=== PATIENT | male | born 1970 | race African-American/Black ===

== ENCOUNTER 2017-04-25 10:28 | Inpatient (IN) | payer BC ==
[2017-04-25 10:54] VITALS: BMI 22.8
--- NOTE | 2017-04-25 11:08 | HP ---
CIWA Score - CIWA Score Nausea/Vomitin-Mild Nausea/No Vomiting Muscle Tremors: 1-None Visible, but [place] Anxiety: 4-Mod. Anxious/Guarded Agitation: 1-Slight > Activity Paroxysmal Sweats: No Perspiration Orientation: 0-Oriented Tacttile Disturbances: 1-Very Mild Itch/Numbness Auditory Disturbances: 1-Very Mild Visual Disturbances: 1-Very Mild Sensitivity Headache: 3-Moderate CIWA-Ar Total Score: 13 Admission ROS BHS - HPI Chief Complaint: My job says I have to stop drinking Allergies/Adverse Reactions: Allergies Allergy/AdvReac Type Severity Reaction Status Date / Time No Known Allergies Allergy Verified 04/25/17 11:02 History of Present Illness: 46 yo gentleman here for first time detox for alcohol. Denies seizures but does have black outs. Never saw psychiatrist but does hear voices sometimes. Longest times sober 'about 3 weeks'. States was told by his work to get help. States he is diabetic but just watches his diet, states on no meds - strong family history of diabetes - BGM = 242. Exam Limitations: Clinical Condition - Ebola screening Have you traveled outside of the country in the last 21 days: No Have you had contact with anyone from an Ebola affected area: No Have you been sick,other than usual withdrawal symptoms: No Do you have a fever: No - Review of Systems Constitutional: Loss of Appetite, Malaise, Changes in sleep, Weakness EENT: reports: Blurred Vision Respiratory: reports: No Symptoms reported Cardiac: reports: No Symptoms Reported GI: reports: Nausea : reports: No Symptoms Reported Musculoskeletal: reports: Back Pain, Joint Pain, Muscle Pain Integumentary: reports: Dryness Endocrine: reports: No Symptoms Reported Hematology: reports: No Symptoms Reported Psychiatric: reports: Judgement Intact, Mood/Affect Appropiate, Orientated x3, Anxious Other Systems: Reviewed and Negative Patient History - Patient Medical History Hx Anemia: No Hx Asthma: No Hx Chronic Obstructive Pulmonary Disease (COPD): No Hx Cancer: No Hx Cardiac Disorders: No Hx Congestive Heart Failure: No Hx Hypertension: No Hx Hypercholesterolemia: No Hx Pacemaker: No HX Cerebrovascular Accident: No Hx Seizures: No Hx Dementia: No Hx Gastrointestinal Disorders: No Hx Liver Disease: No Hx Genitourinary Disorders: No Hx Sexually Transmitted Disorders: No Hx Renal Disease (ESRD): No Hx Thyroid Disease: No Hx Human Immunodeficiency Virus (HIV): No Hx Hepatitis C: No Hx Depression: No Hx Suicide Attempt: No Hx Bipolar Disorder: No Hx Schizophrenia: No (never diagnosed but 'sometimes I hear voices and like I"m in a dream') - Patient Surgical History Past Surgical History: No - PPD History Previous Implant?: No Implanted On Prior R Admission?: No PPD to be Administered?: Yes - Reproductive History Patient is a Female of Child Bearing Age (11 -55 yrs old): No (male) - Smoking Cessation Smoking history: Never smoked Have you smoked in the past 12 months: No - Substance & Tx. History Hx Alcohol Use: Yes Hx Substance Use: No Substance Use Type: Alcohol Hx Substance Use Treatment: No - Substances Abused Alcohol Route: Oral Frequency: Daily Amount used: two 24 oz beers, 1/2 pint liquor Age of first use: 17 Date of Last Use: 04/24/17 Family Disease History - Family Disease History Family Disease History: Diabetes: Father (living, etoh when younger), Brother ( two - one has dm), Sister (seven - living - some with dm), Other: Father, Mother (, 'old age'), Brother, Sister, Son (2 -healthy), Daughter (1 - healthy) Admission Physical Exam [facility] - Vital Signs Vital Signs: Vital Signs - 24 hr 04/25/17 10:44 Temperature 97.5 F L Pulse Rate 83 Respiratory 18 Rate Blood Pressure 158/96 - Physical General Appearance: Yes: Nourished, Appropriately Dressed, Mild Distress HEENTM: Yes: Hearing grossly Normal, Normal ENT Inspection, Normocephalic, Normal Voice, Hearing Decreased Respiratory: Yes: Normal Breath Sounds, No Respiratory Distress Neck: Yes: No masses,lesions,Nodules, Supple Breast: Yes: Breast Exam Deferred Cardiology: Yes: Regular Rhythm, Regular Rate Abdominal: Yes: Flat Genitourinary: Yes: Within Normal Limits Musculoskeletal: Yes: full range of Motion, Gait Steady, Back pain, Joint Stiffness Extremities: Yes: Normal Inspection, Normal Range of Motion Neurological: Yes: Fully Oriented, Alert, Normal Mood/Affect, Normal Response Integumentary: Yes: Normal Color, Warm - Diagnostic (1) Alcohol dependence with uncomplicated withdrawal Current Visit: Yes Status: Chronic (2) Diabetes mellitus type 2, diet-controlled Current Visit: Yes Status: Chronic Cleared for Admission [facility] - Detox or Rehab [facility] Level of Care: Medically Managed Detox Regimen/Protocol: Librium [facility] Breath Alcohol Content Breath Alcohol Content: 0.110 Urine Drug Screen - Results Drug Screen Negative: Yes
[2017-04-25] MEDS ORDERED: MAG HYDROX/AL HYDROX/SIMETH 30 ML UNIT-DOSE CUP PO PRN (11:15)
[2017-04-25] MEDS ORDERED: LOPERAMIDE HCL 2 MG CAPSULE PO PRN (11:15)
[2017-04-25] MEDS ORDERED: MAGNESIUM HYDROX 2400MG/30ML ORAL SUSPENSION 30 ML CUP PO PRN (11:15)
[2017-04-25] MEDS ORDERED: P-EPHED 60MG/TRIPROLIDI 2.5MG TABLET PO PRN (11:15)
[2017-04-25] MEDS ORDERED: MAGNESIUM CITRATE 300 ML BOTTLE PO PRN (11:15)
[2017-04-25] MEDS ORDERED: ACETAMINOPHEN 325 MG TABLET (FP) PO PRN (11:15)
[2017-04-25] MEDS ORDERED: MENTHOL/PHENOL 1 EACH UD MM PRN (11:15)
[2017-04-25] MEDS ORDERED: guaiFENesin/D-METHORPHAN HB 10 ML UNIT-DOSE CUPS PO PRN (11:15)
[2017-04-25] MEDS ORDERED: chlordiazePOXIDE HCL 25 MG CAPSULE PO PRN (11:15)
[2017-04-25] MEDS ORDERED: chlordiazePOXIDE HCL 25 MG CAPSULE PO ONE (12:00)
[2017-04-25] MEDS ORDERED: INSULIN (NOVOLOG) ASPART 100 UNITS/ML 10ML VIAL ONE ×2 (12:29→16:59)
[2017-04-25] MEDS: INSULIN SLIDING SCALE (NOVOLOG) 1 VIAL SQ SCH ×2 (12:32→17:39)
--- NOTE | 2017-04-25 16:00 | EKG ---
Test Reason : Blood Pressure : / mmHG Vent. Rate : 098 BPM Atrial Rate : 098 BPM P-R Int : 168 ms QRS Dur : 084 ms QT Int : 370 ms P-R-T Axes : 054 038 013 degrees QTc Int : 472 ms NORMAL SINUS RHYTHM PROBABLE ATRIAL ABNORMALITY NO PREVIOUS ECGS AVAILABLE Confirmed by MILAGROS CAMPBELL MD ([id number] on 04/25/2017 4:00:08 PM Referred By: Confirmed By:MILAGROS CAPMBELL MD
--- NOTE | 2017-04-25 16:34 | CONSULT ---
[facility] Psychiatric Consult - Data Date of interview: 04/25/17 Admission source: [facility] Identifying data: First admission to [facility] for this 46 y/o [place]-born male seeking detox treatment on for alcohol dependence.Patient is ,a father of three,domiciled,unemployed and reportedly deprived of any source of income. Substance Abuse History: Patient admits to active use of alcohol. Smoking history: Never smoked. Have you smoked in the past 12 months: No. - Substance & Tx. History. Hx Alcohol Use: Yes. Hx Substance Use: No. Substance Use Type : Alcohol. Hx Substance Use Treatment: No. - Substances Abused. Alcohol. Route: Oral. Frequency: Daily. Amount used: two 24 oz beers, 1/2 pint liquor. Age of first use: 17. Date of Last Use: 04/24/17 Medical History: Diabetes mellitus and chronic joint pain. Psychiatric History: Patient denies. Physical/Sexual Abuse/Trauma History: Patient denies history of abuse. Additional Comment: Drug Screen is negative. Mental Status Exam - Mental Status Exam Alert and Oriented to: Time, Place, Person Cognitive Function: Good Patient Appearance: Unkempt, Disheveled (appearing much older than stated age) Mood: Withdrawn, Hopeful Affect: Mood Congruent Patient Behavior: Fatigued, Appropriate, Cooperative Speech Pattern: Clear, Appropriate Voice Loudness: Normal Thought Process: Intact, Goal Oriented Thought Disorder: Not Present Hallucinations: Denies Suicidal Ideation: Denies Homicidal Ideation: Denies Insight/Judgement: Poor Sleep: Poorly, Difficulty falling asleep Appetite: Good Muscle strength/Tone: Normal Gait/Station: Normal Psychiatric Findings - Problem List ([place] 1, 2,3) (1) Alcohol dependence with uncomplicated withdrawal Current Visit: Yes Status: Acute (2) Insomnia Current Visit: Yes Status: Acute (3) Insomnia Current Visit: Yes Status: Acute - Initial Treatment Plan Initial Treatment Plan: Psychoeducation.Sleep hygiene.Detoxification.Ambien 10 mg po hs prn.Side effects/benefits discussed with the patient.He agrees with this careplan.Observation.
[2017-04-25] MEDS: chlordiazePOXIDE HCL 25 MG CAPSULE PO SCH ×2 (17:39→22:25)
[2017-04-25 19:12] LABS: URINE APPEARANCE CLEAR; URINE BILIRUBIN NEGATIVE (NEGATIVE); URINE BLOOD NEGATIVE (NEGATIVE); URINE COLOR LTYELLOW; URINE GLUCOSE (UA) 3+ (NEGATIVE); URINE KETONE 1+ (NEGATIVE); URINE NITRITE NEGATIVE (NEGATIVE); URINE PROTEIN NEGATIVE (NEGATIVE); URINE UROBILINOGEN NEGATIVE mg/dL (0.2-1.0)
[2017-04-25 22:03] LABS: URINE LEUK ESTERASE Negative (NEGATIVE)
[2017-04-25] MEDS: THIAMINE HCL 100 MG TABLET (FP) PO SCH (22:25)
[2017-04-26] MEDS: chlordiazePOXIDE HCL 25 MG CAPSULE PO SCH ×4 (06:10→22:23)
[2017-04-26] MEDS ORDERED: INSULIN (NOVOLOG) ASPART 100 UNITS/ML 10ML VIAL ONE ×3 (06:12→21:17)
[2017-04-26] MEDS: INSULIN SLIDING SCALE (NOVOLOG) 1 VIAL SQ SCH ×4 (06:13→22:23)
--- NOTE | 2017-04-26 10:05 | PN ---
S CIWA - CIWA Score Nausea/Vomitin Muscle Tremors: 3 Anxiety: 3 Agitation: 2 Paroxysmal Sweats: 1-Minimal Palms Moist Orientation: 0-Oriented Tacttile Disturbances: 1-Very Mild Itch/Numbness Auditory Disturbances: 1-Very Mild Visual Disturbances: 1-Very Mild Sensitivity Headache: 2-Mild CIWA-Ar Total Score: 17 BHS Progress Note (SOAP) Subjective: alert,irritable,anxious,interrupted sleep,tremor,pain in the body back Objective: 04/26/17 10:03 Vital Signs Temperature 97.7 F 04/26/17 06:05 Pulse Rate 87 04/26/17 06:05 Respiratory Rate 18 04/26/17 06:05 Blood Pressure 138/86 04/26/17 06:05 O2 Sat by Pulse Oximetry (%) ekg nsr,normal ecg Laboratory Last Values POC Glucometer 242 UNITS (80-120) 04/25/17 11:24 Urine Color Ltyellow 04/25/17 18:55 Urine Appearance Clear 04/25/17 18:55 Urine pH 6.0 (5.0-8.0) 04/25/17 18:55 Ur Specific [place] 1.028 (1.001-1.035) 04/25/17 18:55 Urine Protein Negative (NEGATIVE) 04/25/17 18:55 Urine Glucose (UA) 3+ (NEGATIVE) H 04/25/17 18:55 Urine Ketones 1+ (NEGATIVE) H 04/25/17 18:55 Urine Blood Negative (NEGATIVE) 04/25/17 18:55 Urine Nitrite Negative (NEGATIVE) 04/25/17 18:55 Urine Bilirubin Negative (NEGATIVE) 04/25/17 18:55 Urine Urobilinogen Negative mg/dL (0.2-1.0) 04/25/17 18:55 Ur Leukocyte Esterase Negative (NEGATIVE) 04/25/17 18:55 labs pending Assessment: 04/26/17 10:04 withdrawal symptom Plan: continue detox
[2017-04-26] MEDS: PRENATAL VITAMINS W/ FOLIC ACID TABLET (FP) PO SCH (10:38)
[2017-04-26 11:26] LABS: MCH 30.7 pg (25.7-33.7); MCHC 33.2 g/dl (32.0-35.9); MEAN CELL VOLUME 92.6 fl (80-96); MEAN PLT VOLUME 9.1 fl (7.5-11.1); PLATELET COUNT 143 K/MM3 (134-434); RDW 12.9 % (11.9-15.9); WHITE BLOOD COUNT 4.5 K/mm3 (4.0-10.0)
[2017-04-26 12:02] LABS: ALBUMIN 3.2 g/dl (3.4-5.0); ANION GAP 9 (8-16); BILIRUBIN,TOTAL 1.7 mg/dL (0.2-1.0); CO2 31 mmol/L (21-32); CREATININE 0.9 mg/dL (0.7-1.3); SGOT/AST 32 U/L (15-37); SGPT/ALT 49 U/L (12-78); TOT PROT 6.5 g/dl (6.4-8.2)
[2017-04-26 12:03] LABS: ALK PHOS 166 U/L (45-117)
[2017-04-26 12:14] LABS: GLUCOSE,RANDOM 474 mg/dL (74-106)
[2017-04-26 12:21] LABS: HIV 1 & 2 AB NEGATIVE; HIV 1 AGp24 NEGATIVE
[2017-04-26] MEDS: IBUPROFEN 400 MG TABLET (FP) PO PRN (15:16)
[2017-04-26] MEDS: hydrOXYzine PAMOATE 50 MG CAPSULE (FP) PO PRN (15:16)
--- NOTE | 2017-04-26 16:39 | PN ---
S Progress Note Note: PATIENT COMPLAINT OF PAIN ALL OVER,BACK,CHEST,SHOULDER,EXTREMITIES EKG NORMAL EGG NO SOB,NO DIZZINESS Vital Signs Temperature 97.9 F 04/26/17 13:49 Pulse Rate 115 H 04/26/17 13:49 Respiratory Rate 18 04/26/17 13:49 Blood Pressure 132/57 04/26/17 13:49 O2 Sat by Pulse Oximetry (%) WITHDRAWAL SYMPTOM CONTINUE DETOX BGM ACHS WITH INSULIN COVERAGE CLOSE MONITORING
[2017-04-26] MEDS: THIAMINE HCL 100 MG TABLET (FP) PO SCH (22:23)
[2017-04-27] MEDS: chlordiazePOXIDE HCL 25 MG CAPSULE PO SCH ×2 (06:15→10:36)
[2017-04-27] MEDS ORDERED: INSULIN (NOVOLOG) ASPART 100 UNITS/ML 10ML VIAL ONE ×4 (07:45→21:45)
[2017-04-27] MEDS: INSULIN SLIDING SCALE (NOVOLOG) 1 VIAL SQ SCH ×4 (07:48→22:17)
--- NOTE | 2017-04-27 09:50 | PN ---
S CIWA - CIWA Score Nausea/Vomitin Muscle Tremors: 3 Anxiety: 3 Agitation: 2 Paroxysmal Sweats: 1-Minimal Palms Moist Orientation: 0-Oriented Tacttile Disturbances: 1-Very Mild Itch/Numbness Auditory Disturbances: 1-Very Mild Visual Disturbances: 0-None Headache: 2-Mild CIWA-Ar Total Score: 16 BHS Progress Note (SOAP) Subjective: alert,irritable,anxious,interrupted sleep,tremor Objective: 04/27/17 09:48 Vital Signs Temperature 97.6 F 04/27/17 09:39 Pulse Rate 108 H 04/27/17 09:39 Respiratory Rate 20 04/27/17 09:39 Blood Pressure 116/84 04/27/17 09:39 O2 Sat by Pulse Oximetry (%) Laboratory Last Values WBC 4.5 K/mm3 (4.0-10.0) 04/26/17 07:40 RBC 4.57 M/mm3 (4.00-5.60) 04/26/17 07:40 Hgb 14.0 GM/dL (11.7-16.9) 04/26/17 07:40 Hct 42.3 % (35.4-49) 04/26/17 07:40 MCV 92.6 fl (80-96) 04/26/17 07:40 MCH 30.7 pg (25.7-33.7) 04/26/17 07:40 MCHC 33.2 g/dl (32.0-35.9) 04/26/17 07:40 RDW 12.9 % (11.9-15.9) 04/26/17 07:40 Plt Count 143 K/MM3 (134-434) 04/26/17 07:40 MPV 9.1 fl (7.5-11.1) 04/26/17 07:40 Sodium 134 mmol/L (136-145) L 04/26/17 07:40 Potassium 3.5 mmol/L (3.5-5.1) 04/26/17 07:40 Chloride 94 mmol/L (98-107) L 04/26/17 07:40 Carbon Dioxide 31 mmol/L (21-32) 04/26/17 07:40 Anion Gap 9 (8-16) 04/26/17 07:40 BUN 10 mg/dL (7-18) 04/26/17 07:40 Creatinine 0.9 mg/dL (0.7-1.3) 04/26/17 07:40 Creat Clearance w eGFR > 60 (>60) 04/26/17 07:40 POC Glucometer 301 UNITS (80-120) 04/27/17 06:13 Random Glucose 474 mg/dL (74-106) H* 04/26/17 07:40 Calcium 9.0 mg/dL (8.5-10.1) 04/26/17 07:40 Total Bilirubin 1.7 mg/dL (0.2-1.0) H 04/26/17 07:40 AST 32 U/L (15-37) 04/26/17 07:40 ALT 49 U/L (12-78) 04/26/17 07:40 Alkaline Phosphatase 166 U/L (45-117) H 04/26/17 07:40 Total Protein 6.5 g/dl (6.4-8.2) 04/26/17 07:40 Albumin 3.2 g/dl (3.4-5.0) L 04/26/17 07:40 Urine Color Ltyellow 04/25/17 18:55 Urine Appearance Clear 04/25/17 18:55 Urine pH 6.0 (5.0-8.0) 04/25/17 18:55 Ur Specific [place] 1.028 (1.001-1.035) 04/25/17 18:55 Urine Protein Negative (NEGATIVE) 04/25/17 18:55 Urine Glucose (UA) 3+ (NEGATIVE) H 04/25/17 18:55 Urine Ketones 1+ (NEGATIVE) H 04/25/17 18:55 Urine Blood Negative (NEGATIVE) 04/25/17 18:55 Urine Nitrite Negative (NEGATIVE) 04/25/17 18:55 Urine Bilirubin Negative (NEGATIVE) 04/25/17 18:55 Urine Urobilinogen Negative mg/dL (0.2-1.0) 04/25/17 18:55 Ur Leukocyte Esterase Negative (NEGATIVE) 04/25/17 18:55 RPR Titer Nonreactive (NONREACTIVE) 04/26/17 07:40 HIV 1&2 Antibody Screen Negative 04/26/17 07:40 HIV P24 Antigen Negative 04/26/17 07:40 Assessment: 11/13/17 09:48 withdrawal symptom Plan: continue detox,bgm monitoring with insulin coverage
[2017-04-27] MEDS: PRENATAL VITAMINS W/ FOLIC ACID TABLET (FP) PO SCH (10:36)
--- NOTE | 2017-04-27 17:34 | EKG ---
Test Reason : Blood Pressure : / mmHG Vent. Rate : 096 BPM Atrial Rate : 096 BPM P-R Int : 162 ms QRS Dur : 078 ms QT Int : 372 ms P-R-T Axes : 036 042 013 degrees QTc Int : 469 ms NORMAL SINUS RHYTHM NORMAL ECG WHEN COMPARED WITH ECG OF 25-APR-2017 12:51, T WAVE VARIATION Confirmed by WILMAN WHITING MD ([id number]) on 04/27/2017 5:34:27 PM Referred By: Confirmed By:WILMAN WHITING MD
[2017-04-27] MEDS: chlordiazePOXIDE 5 MG CAPSULE PO SCH ×2 (18:04→22:17)
[2017-04-27] MEDS: hydrOXYzine PAMOATE 50 MG CAPSULE (FP) PO PRN (22:17)
[2017-04-27] MEDS: THIAMINE HCL 100 MG TABLET (FP) PO SCH (22:17)
[2017-04-28] MEDS: chlordiazePOXIDE 5 MG CAPSULE PO SCH ×2 (06:04→10:28)
[2017-04-28] MEDS ORDERED: INSULIN (NOVOLOG) ASPART 100 UNITS/ML 10ML VIAL ONE ×4 (06:07→22:29)
[2017-04-28] MEDS: INSULIN SLIDING SCALE (NOVOLOG) 1 VIAL SQ SCH ×4 (06:09→22:30)
[2017-04-28] MEDS ORDERED: metFORMIN HCL 500 MG TABLET (FP) PO ONE (09:03)
--- NOTE | 2017-04-28 10:05 | PN ---
S Progress Note (SOAP) Subjective: alert,irritable,anxious,interrupted sleep,tremor,pain in the body Objective: 04/28/17 10:03 Vital Signs Temperature 97.7 F 04/28/17 06:00 Pulse Rate 95 H 04/28/17 06:00 Respiratory Rate 18 04/28/17 06:00 Blood Pressure 105/69 04/28/17 06:00 O2 Sat by Pulse Oximetry (%) [facility] 433 Assessment: 04/28/17 10:03 withdrawal symptom Plan: continue detox,hba1c,metformin 500 mgs po bid with insulin coverage,weapons officer naval activity consultation
[2017-04-28] MEDS: PRENATAL VITAMINS W/ FOLIC ACID TABLET (FP) PO SCH (10:28)
[2017-04-28] MEDS: hydrOXYzine PAMOATE 50 MG CAPSULE (FP) PO PRN (12:31)
[2017-04-28] MEDS: IBUPROFEN 400 MG TABLET (FP) PO PRN (12:33)
[2017-04-28] MEDS: metFORMIN HCL 500 MG TABLET (FP) PO SCH (19:05)
[2017-04-28] MEDS: chlordiazePOXIDE HCL 10 MG CAPSULE PO SCH ×2 (19:06→22:28)
[2017-04-28] MEDS: THIAMINE HCL 100 MG TABLET (FP) PO SCH (22:28)
[2017-04-29] MEDS: chlordiazePOXIDE HCL 10 MG CAPSULE PO SCH (05:18)
[2017-04-29] MEDS: metFORMIN HCL 500 MG TABLET (FP) PO SCH (06:27)
[2017-04-29] MEDS ORDERED: INSULIN (NOVOLOG) ASPART 100 UNITS/ML 10ML VIAL ONE (07:24)
[2017-04-29] MEDS: INSULIN SLIDING SCALE (NOVOLOG) 1 VIAL SQ SCH (07:41)
--- NOTE | 2017-04-29 08:28 | PN ---
S Progress Note (SOAP) Subjective: ALERT,NO COMPLAINT Objective: 04/29/17 08:27 Vital Signs Temperature 97.5 F L 04/29/17 06:21 Pulse Rate 82 04/29/17 06:21 Respiratory Rate 18 04/29/17 06:21 Blood Pressure 101/64 04/29/17 06:21 O2 Sat by Pulse Oximetry (%) BGM 297 Assessment: DETOX COMPLETED,NO WITHDRAWAL SYMPTOM Plan: DISCHARGE TODAY,FOLLOW UP WITH AFTER CARE PROGRAM ARRANGEMENT AND CLINIC AT [facility] FOR DIABETIC MANAGEMENT AND FOLLOW UP
--- NOTE | 2017-04-29 08:44 | DS ---
[facility] Detox Discharge Summary Admission Date: 04/25/17 Discharge Date: 04/29/17 - History Present History: Alcohol Dependence Additional Comments: FOLLOW UP WITH [facility] AND [facility] FOR DIABETIC MANAGEMENT AND FOLLOW UP Pertinent Past History: TYPE 2 DM - Physical Exam Results Vital Signs: Vital Signs Temperature 97.5 F L 04/29/17 06:21 Pulse Rate 82 04/29/17 06:21 Respiratory Rate 18 04/29/17 06:21 Blood Pressure 101/64 04/29/17 06:21 O2 Sat by Pulse Oximetry (%) Pertinent Admission Physical Exam Findings: WITHDRAWAL SYMPTOM - Treatment Hospital Course: Detox Protocol Followed, Detoxed Safely, Responded well, Discharged Condition Good, Rehab Referral Accepted Patient has Accepted a Rehab Referral to: [facility] - Medication Discharge Medications: Ambulatory Orders Insulin Sliding Scale [Novolog Vial Sliding Scale -] 1 vial SQ ACHS #4 units Metformin HCl [Glucophage -] 500 mg PO BID@0700,1630 #60 tablet 04/29/17 - Diagnosis (1) Alcohol dependence with uncomplicated withdrawal Current Visit: Yes Status: Acute (2) Insomnia Current Visit: Yes Status: Acute (3) Diabetes mellitus type 2, diet-controlled Current Visit: Yes Status: Chronic (4) DM2 (diabetes mellitus, type 2) Current Visit: Yes Status: Acute - AMA Did Patient Leave Against Medical Advice: No
--- NOTE | 2017-04-29 08:49 | PN ---
GRETCHEN Progress Note Note: PATIENT WILL BE DISCHARGED ON METFORMIN 500 MGS PO BID,BEFORE BREAKFAST AND DINNER,ON NOVOLOG 4 UNIT BEFORE EACH MEAL,WILL SEE HIS OWN PMD AND OR CONTROL ELECTRICIAN AT [facility] FOR DIABETIC MANAGEMENT ANF FOLLOW UP
[2017-04-29 10:03] VITALS: BP 113/73; PULSE 102; TEMP 97.3
== END 2017-04-29 11:20 | disposition home or self-care (01) | DRG 897 ==
LOC: YASAS 10:28 → Y6N 11:47
PROVIDERS: ADMIT Internal Medicine; ATTEND Internal Medicine
PROC: HZ2ZZZZ Detoxification Services for Substance Abuse Treatment (ICD-10-PCS; principal; 2017-04-25)
DX: F10.230 Alcohol dependence with withdrawal, uncomplicated (principal); E11.9 Type 2 diabetes mellitus without complications; G47.00 Insomnia, unspecified; Z79.84 Long term (current) use of oral hypoglycemic drugs
CPT/HCPCS: 36415; 80053; 81003; 83036; 85027; 86593; 87389; 93005; 93010